=== PATIENT | male | born 1980 | race Caucasian/White ===

== ENCOUNTER 2017-11-12 19:49 | Emergency (ER) | payer BC, OTHER ==
[2017-11-12 20:19] VITALS: TEMP 98.1; BMI 30.3
[2017-11-12 20:43] LABS: BASO % 0.8 % (0-2.0); EOS % 1.9 % (0-4.5); HEMATOCRIT 40.8 % (35.4-49); HEMOGLOBIN 13.8 GM/dL (11.7-16.9); LYMPH % 35.1 % (8-40); MCH 30.8 pg (25.7-33.7); MCHC 33.9 g/dl (32.0-35.9); MEAN PLT VOLUME 9.8 fl (7.5-11.1); MONO % 10.4 % (3.8-10.2); NEUT % 51.8 % (42.8-82.8); PLATELET COUNT 231 K/MM3 (134-434); RBC 4.48 M/mm3 (4.00-5.60); RDW 13.2 % (11.9-15.9); WHITE BLOOD COUNT 12.2 K/mm3 (4.0-10.0)
[2017-11-12 20:55] LABS: INR 1.1 (0.82-1.09); PROTHROMBIN TIME (PATIENT) 12.4 SEC (9.7-13.0)
[2017-11-12 20:56] LABS: ALBUMIN 4.2 g/dl (3.4-5.0); ANION GAP 9 (8-16); BILIRUBIN,TOTAL 0.5 mg/dL (0.2-1.0); BLOOD UREA NITROGEN 22 mg/dL (7-18); CALCIUM 8.7 mg/dL (8.5-10.1); CHLORIDE 106 mmol/L (98-107); CO2 25 mmol/L (21-32); CREATININE 1.3 mg/dL (0.7-1.3); GLUCOSE,RANDOM 131 mg/dL (74-106); MAGNESIUM 1.9 mg/dL (1.8-2.4); PHOSPHOROUS 2.6 mg/dL (2.5-4.9); POTASSIUM 3.6 mmol/L (3.5-5.1); SGOT/AST 28 U/L (15-37); SGPT/ALT 41 U/L (12-78); SODIUM 140 mmol/L (136-145); TOT PROT 7.5 g/dl (6.4-8.2)
[2017-11-12 20:59] LABS: ALK PHOS 78 U/L (45-117)
[2017-11-12] MEDS ORDERED: ACETAMINOPHEN 500 MG TABLET (FP) PO ONE (22:15)
[2017-11-12] MEDS ORDERED: ACETAMINOPHEN 325 MG TABLET (FP) ONE (22:24)
--- NOTE | 2017-11-12 23:46 | PDOC ---
History of Present Illness - General History Source: Patient Exam Limitations: No Limitations - History of Present Illness Initial Comments: 11/12/17 23:46 The patient is a 37 year old male with a significant past medical history of asthma (last attack at 17 y.o) who presents to the emergency department for evaluation of neck pain. The patient reports an episode of neck pain and chest pain with an associated symptom of numbness radiating from head to feet while driving [place] this evening. He reports pulling over to have his drive after feeling numbness and neck cramping. Pt reports associated symptoms of mild chest pain, dizziness, palpitations, and paresthesia in hands. 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 Of note, the patient reports taking Aleve every morning. The patient denies recent falls/injuries, history of anxiety, changes in diet, shortness of breath, and headache. Denies fever, chills, nausea, vomiting, and any urinary/bowel symptoms. 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 No reported alcohol, cigarette, or drug use. Surgical History: Patient denies. PCP: None. 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) COPD: No - Suicide/Smoking/Psychosocial Hx Smoking History: Never smoked Have you smoked in the past 12 months: No Information on smoking cessation initiated: No Hx Alcohol Use: No Drug/Substance Use Hx: No <Rayna Ornelas - Last Filed: 11/13/17 00:06> - Past Medical History Allergies/Adverse Reactions: Allergies Allergy/AdvReac Type Severity Reaction Status Date / Time shellfish derived Allergy Verified 11/12/17 21:09 Home Medications: Ambulatory Orders Aspirin 81 mg PO DAILY 11/12/17 Review of Systems - Review of Systems Able to Perform ROS?: Yes Comments:: GENERAL/CONSTITUTIONAL: No fever or chills. No weakness. HEAD, EYES, EARS, NOSE AND THROAT: No change in vision. No ear pain or discharge. No sore throat. CARDIOVASCULAR: (+)chest pain. (+)Dizziness. No shortness of breath. RESPIRATORY: No cough, wheezing, or hemoptysis. GASTROINTESTINAL: No nausea, vomiting, diarrhea or constipation. GENITOURINARY: No dysuria, frequency, or change in urination. MUSCULOSKELETAL: (+)Neck discomfort. No joint or muscle swelling or pain. SKIN: No rash NEUROLOGIC: No headache, vertigo, loss of consciousness, or change in strength/ sensation. ENDOCRINE: No increased thirst. No abnormal weight change. HEMATOLOGIC/LYMPHATIC: No anemia, easy bleeding, or history of blood clots. ALLERGIC/IMMUNOLOGIC: No hives or skin allergy. <Agapito Quispe - Last Filed: 11/12/17 23:46> *Physical Exam - Vital Signs Last Vital Signs Temp Pulse Resp BP Pulse Ox 98.1 F 81 14 140/81 100 11/12/17 20:15 11/12/17 21:57 11/12/17 21:57 11/12/17 20:15 11/12/17 20:15 - Physical Exam Comments: GENERAL: Awake, alert, and fully oriented, in no acute distress HEAD: No signs of trauma EYES: PERRLA, EOMI, sclera anicteric, conjunctiva clear ENT: (+)Right ear canal, large amount of cerumen and crusted blood. Hearing grossly normal, nares patent, oropharynx clear without exudates. Moist mucosa NECK: Normal ROM, supple, no lymphadenopathy, JVD, or masses LUNGS: Breath sounds equal, clear to auscultation bilaterally. No wheezes, and no crackles HEART: Regular rate and rhythm, normal S1 and S2, no murmurs, rubs or gallops ABDOMEN: Soft, nontender, normoactive bowel sounds. No guarding, no rebound. No masses EXTREMITIES: Normal range of motion, no edema. No clubbing or cyanosis. No cords, erythema, or tenderness NEUROLOGICAL: Cranial nerves II through XII grossly intact. Normal speech, normal gait SKIN: Warm, Dry, normal turgor, no rashes or lesions noted. <Agapito Quispe - Last Filed: 11/12/17 23:46> - Vital Signs Last Vital Signs Temp Pulse Resp BP Pulse Ox 98.1 F 81 14 140/81 100 11/12/17 20:15 11/12/17 21:57 11/12/17 21:57 11/12/17 20:15 11/12/17 20:15 <Rayna Ornelas - Last Filed: 11/13/17 00:06> Heart Score/ECG Review - ECG Impressions Comment:: ECG reviewed by Dr. Ornelas at 22:00. Impression: Sinus tachycardia at 103 bpm. IN Interval 140 ms QRS duration 104 ms QT/QTc 360/471 ms P-R-T axes 59 31 43 <Agapito Quispe - Last Filed: 11/12/17 23:46> ED Treatment Course - LABORATORY CBC & Chemistry Diagram: 11/12/17 20:30 11/12/17 20:30 - ADDITIONAL ORDERS Additional order review: Laboratory Results 11/12/17 11/12/17 20:30 20:30 PT with INR 12.40 INR 1.10 Sodium 140 Potassium 3.6 Chloride 106 Carbon Dioxide 25 Anion Gap 9 BUN 22 H Creatinine 1.3 Creat Clearance w eGFR > 60 Random Glucose 131 H Calcium 8.7 Phosphorus 2.6 Magnesium 1.9 Total Bilirubin 0.5 AST 28 ALT 41 Alkaline Phosphatase 78 Creatine Kinase 577 H Creatine Kinase Index 0.3 CK-MB (CK-2) 2.19 Troponin I < 0.02 Total Protein 7.5 Albumin 4.2 11/12/17 20:30 RBC 4.48 MCV 91.0 MCHC 33.9 RDW 13.2 MPV 9.8 Neutrophils % 51.8 Lymphocytes % 35.1 Monocytes % 10.4 H Eosinophils % 1.9 Basophils % 0.8 - Medications Given in the ED: ED Medications Discontinued Medications Generic Name Dose Route Start Last Admin Trade Name Freq PRN Reason Stop Dose Admin Acetaminophen 1,000 mg 11/12/17 22:15 11/12/17 22:33 Tylenol - PO 11/12/17 22:16 1,000 mg ONCE ONE Administration <Agapito Quispe - Last Filed: 11/12/17 23:46> - LABORATORY CBC & Chemistry Diagram: 11/12/17 20:30 11/12/17 20:30 - ADDITIONAL ORDERS Additional order review: Laboratory Results 11/12/17 11/12/17 20:30 20:30 PT with INR 12.40 INR 1.10 Sodium 140 Potassium 3.6 Chloride 106 Carbon Dioxide 25 Anion Gap 9 BUN 22 H Creatinine 1.3 Creat Clearance w eGFR > 60 Random Glucose 131 H Calcium 8.7 Phosphorus 2.6 Magnesium 1.9 Total Bilirubin 0.5 AST 28 ALT 41 Alkaline Phosphatase 78 Creatine Kinase 577 H Creatine Kinase Index 0.3 CK-MB (CK-2) 2.19 Troponin I < 0.02 Total Protein 7.5 Albumin 4.2 11/12/17 20:30 RBC 4.48 MCV 91.0 MCHC 33.9 RDW 13.2 MPV 9.8 Neutrophils % 51.8 Lymphocytes % 35.1 Monocytes % 10.4 H Eosinophils % 1.9 Basophils % 0.8 - RADIOLOGY Radiology Studies Ordered: Category Date Time Status CERVICAL SPINE CT W/O CONTR [CT] Stat CT Scan 11/12/17 22:[address] WITHOUT CONTRAST [CT] Stat CT Scan 11/12/17 22:40 Completed - Medications Given in the ED: ED Medications Discontinued Medications Generic Name Dose Route Start Last Admin Trade Name Chucky PRN Reason Stop Dose Admin Acetaminophen 1,000 mg 11/12/17 22:15 11/12/17 22:33 Tylenol - PO 11/12/17 22:16 1,000 mg ONCE ONE Administration <Rayna Ornelas - Last Filed: 11/13/17 00:06> *DC/Admit/Observation/Transfer - Attestations Scribe Attestion: Documentation prepared by Agapito Quispe, acting as medical detail representative for Rayna Ornelas MD. <Agapito Quispe - Last Filed: 11/12/17 23:46> - Discharge Dispostion Decision to Admit order: No <Rayna Ornelas - Last Filed: 11/13/17 00:06> Diagnosis at time of Disposition: Paresthesia of both hands, Tingling sensation, Stress at work - Discharge Dispostion Disposition: HOME Condition at time of disposition: Stable - Referrals Referrals: Pete Harding MD [Staff Physician] - - Patient Instructions Printed Discharge Instructions: DI for Numbness/tingling, How stressed are you? , Tips for Reducing Stress in Your Life - Post Discharge Activity Forms/Work/School Notes: Back to Work
[2017-11-13 00:31] VITALS: BP 112/72; PULSE 74
--- NOTE | 2017-11-14 10:20 | EKG ---
Test Reason : Blood Pressure : / mmHG Vent. Rate : 103 BPM Atrial Rate : 103 BPM P-R Int : 140 ms QRS Dur : 104 ms QT Int : 360 ms P-R-T Axes : 059 031 043 degrees QTc Int : 471 ms SINUS TACHYCARDIA POSSIBLE LEFT ATRIAL ENLARGEMENT INCOMPLETE RIGHT BUNDLE BRANCH BLOCK BORDERLINE ECG NO PREVIOUS ECGS AVAILABLE Confirmed by TANVI LEWIS, MINI ([id number]) on 11/14/2017 10:19:42 AM Referred By: Confirmed By:MINI TINAJERO MD
== END 2017-11-13 00:35 | disposition home or self-care (01) ==
LOC: JER 19:49
DX: R20.2 Paresthesia of skin (principal); Z56.3 Stressful work schedule
CPT/HCPCS: 36415; 70450-TC; 72125-TC; 80053; 82550; 82553; 83735; 84100; 84484; 85025; 85610; 93005; 93010; 99285-25